=== PATIENT | male | born 1970 | race Caucasian/White ===

== ENCOUNTER 2023-04-28 08:09 | Outpatient (CLI) | payer BC | END 2023-04-28 08:10 | disposition home or self-care (01) | LOC: EDBD → CSHMRI 08:09 | PROVIDERS: ATTEND Internal Medicine | DX: R13.10 Dysphagia, unspecified (principal); R93.3 Abnormal findings on diagnostic imaging of other parts of digestive tract; Z12.11 Encounter for screening for malignant neoplasm of colon; D18.03 Hemangioma of intra-abdominal structures; K86.2 Cyst of pancreas; K76.0 Fatty (change of) liver, not elsewhere classified | CPT/HCPCS: 74183 ==